=== PATIENT | male | born 1970 ===

== ENCOUNTER → 2017-07-01 | Outpatient (REF) | LOC: AMB 16:02 | PROVIDERS: ATTEND Nurse Practitioner | DX: Z02.9 Encounter for administrative examinations, unspecified (principal) ==

== ENCOUNTER → 2018-01-02 | Outpatient (RCR) | payer OTHER ==
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
--- NOTE | 2017-10-28 12:43 | PT PLAN OF CARE ---
Physician: Geoff Razo MD Patient is being seen: 3x/Week Therapist: Benita Biggs, PT, DPT, CLT Medical Diagnosis: Sacral Fracture, Left Trimalleolar Fracture, Left Femoral Shaft Fracture Treatment Diagnosis: Sacral Fracture, Left Trimalleolar Fracture, Left Femoral Shaft Fracture Date of Onset: 07/01/17 Date of Initial Evaluation: 10/04/17 Date patient was last seen: 10/28/17 Number of treatments: 11 Number of cancellations/No shows: 0 INTERVENTIONS: Manual Therapy/STM/MET Strengthening/condition Ice/Heat Range of Motion Spinal Stabilization Ultrasound Stretching Iontophoresis Neuromuscular Re-ed Closed Chain Program Electrical Stim Posture/Body mechanics Gait Trg/Balance Trg Biofeedback Home Exercise Program Mech./Manual Traction Therapeutic Activities Pelvic Floor GOALS: In 3 weeks pt will improve L ankle ROM to equal to that of the R LE for improved function with ambulation and ADL's. In Progress In 3 weeks pt will improve L hip strength to 4/5 or greater in all major muscle motor groups for improved function with ADL's. In Progress In 3 weeks pt will progress to single crutch ambulation for 5 laps to improve function with ADL's. MET In 6 weeks pt will increase L ankle strength to 4/5 in all major motor groups for improved function with ADL's. MET In 6 weeks pt will increase L knee strength to equal to that of the contralateral limb for improved function with ADL's. In 6 weeks pt will ambulate safely for 5 laps without use of AD for improved functional mobility with ADL's. In 6 weeks pt will be compliant with HEP for continued return to outdoor recreational activities. PATIENT'S GOAL: Return to outdoor activities, improve strength and function with ADL's. Status of Patient's Goals: 2/7 MET, /7 In Progress Patient Compliance: Good Prognosis: Good Reasons for continuing therapy: Ramos shows good progress with strengthening and stability with gradual progression to full WB status. At this time pt Ankle, Hip and Knee ROM is near equal to the unaffected side. Pt is ambulating with a single crutch only and is able to do full WB ambulation for short distances (< 15 feet). Further PT is indicated to continue with strengthening progression and return to PLOF. ROM: Ankle ROM (L,R): DF: 7, 10, PF: 33, 38, Inv: 36, 38, Evr: 7, 9. Knee ROM (L,R): Flexion: 138, 150, Ext: 0, 2. Lumbar ROM: Full without pain Hip ROM: WNL B Strength: Hip MMT (L, R): Flexion: 4+, 5, Add: 4+, 5, Abd: 4-, 5, Ext: 4-, 4+. Knee MMT (L,R): Flexion: 4, 5, Ext: 4, 5. Ankle MMT: all L 4/5, all R 5/5 Mobility: Pt able to perform sit<>stand transfers without use of B LE. If you have any questions or concerns, please feel free to contact me at . Thank you, Benita Biggs, PT, DPT, CLT MTDD
--- NOTE | 2017-11-25 11:36 | PT PLAN OF CARE ---
Physician: Geoff Razo MD Patient is being seen: 3x/Week Therapist: Benita Biggs, PT, DPT, CLT Medical Diagnosis: Sacral Fracture, Left Trimalleolar Fracture, Left Femoral Shaft Fracture Treatment Diagnosis: Sacral Fracture, Left Trimalleolar Fracture, Left Femoral Shaft Fracture Date of Onset: 07/01/17 Date of Initial Evaluation: 10/04/17 Date patient was last seen: 11/25/17 Number of treatments: 21 Number of cancellations/No shows: 0 INTERVENTIONS: Manual Therapy/STM/MET Strengthening/condition Ice/Heat Range of Motion Spinal Stabilization Ultrasound Stretching Iontophoresis Neuromuscular Re-ed Closed Chain Program Electrical Stim Posture/Body mechanics Gait Trg/Balance Trg Biofeedback Home Exercise Program Mech./Manual Traction Therapeutic Activities Pelvic Floor GOALS: In 3 weeks pt will improve L ankle ROM to equal to that of the R LE for improved function with ambulation and ADL's. In Progress In 3 weeks pt will improve L hip strength to 4/5 or greater in all major muscle motor groups for improved function with ADL's. MET In 3 weeks pt will progress to single crutch ambulation for 5 laps to improve function with ADL's. MET In 6 weeks pt will increase L ankle strength to 4/5 in all major motor groups for improved function with ADL's. MET In 6 weeks pt will increase L knee strength to equal to that of the contralateral limb for improved function with ADL's. In 6 weeks pt will ambulate safely for 5 laps without use of AD for improved functional mobility with ADL's. In 6 weeks pt will be compliant with HEP for continued return to outdoor recreational activities. PATIENT'S GOAL: Return to outdoor activities, improve strength and function with ADL's. Status of Patient's Goals: 3/7 MET, 4/7 In Progress Patient Compliance: Good Prognosis: Good Reasons for continuing therapy: Ramos shows good progress with strengthening and endurance. Pt shows improved weight shift to the L LE with ambulation, but remains to have decreased tolerance for full weight bearing with decreased hip and gluteal activation with SLS. Pt remains to have R trunk lateral shift in static stance and ambulation, but is able to correct with cuing. Ankle, Knee, and Hip mobility remain full without restrictions in all except ankle eversion. Further PT is indicated for this patient for improved progress towards gait and strength goals for return to prior level of function. ROM: Ankle ROM (L,R): DF: 9, 10, PF: 33, 38, Inv: 38, 38, Evr: 7, 9. Knee ROM (L,R): Flexion: 140, 150, Ext: 2, 2. Lumbar ROM: Full without pain Hip ROM: WNL B Strength: Hip MMT (L, R): Flexion: 4+, 5, Add: 4+, 5, Abd: 4+, 5, Ext: 4+, 4+. Knee MMT (L,R): Flexion: 4+, 5, Ext: 4+, 5. Ankle MMT: L side: DF/Inv/Erv: 5/5, PF: 4/5. R side: all 5/5 Mobility: Pt able to perform sit<>stand transfers without use of B LE. If you have any questions or concerns, please feel free to contact me at [phone]. Thank you, Benita Biggs, PT, DPT, CLT MTDD
--- NOTE | 2017-12-28 15:55 | PT PLAN OF CARE ---
Physician: Geoff Razo MD Patient is being seen: 2-3x/Week Therapist: Benita Biggs, PT, DPT, CLT Medical Diagnosis: Sacral Fracture, Left Trimalleolar Fracture, Left Femoral Shaft Fracture Treatment Diagnosis: Sacral Fracture, Left Trimalleolar Fracture, Left Femoral Shaft Fracture Date of Onset: 07/01/17 Date of Initial Evaluation: 10/04/17 Date patient was last seen: 12/28/17 Number of treatments: 31 Number of cancellations/No shows: 0 INTERVENTIONS: Manual Therapy/STM/MET Strengthening/condition Ice/Heat Range of Motion Spinal Stabilization Ultrasound Stretching Iontophoresis Neuromuscular Re-ed Closed Chain Program Electrical Stim Posture/Body mechanics Gait Trg/Balance Trg Biofeedback Home Exercise Program Mech./Manual Traction Therapeutic Activities Pelvic Floor GOALS: In 3 weeks pt will improve L ankle ROM to equal to that of the R LE for improved function with ambulation and ADL's. MET In 3 weeks pt will improve L hip strength to 4/5 or greater in all major muscle motor groups for improved function with ADL's. MET In 3 weeks pt will progress to single crutch ambulation for 5 laps to improve function with ADL's. MET In 6 weeks pt will increase L ankle strength to 4/5 in all major motor groups for improved function with ADL's. MET In 6 weeks pt will increase L knee strength to equal to that of the contralateral limb for improved function with ADL's. In 6 weeks pt will ambulate safely for 5 laps without use of AD for improved functional mobility with ADL's. In 6 weeks pt will be compliant with HEP for continued return to outdoor recreational activities. PATIENT'S GOAL: Return to outdoor activities, improve strength and function with ADL's. Status of Patient's Goals: 4/7 MET, 3/7 In Progress Patient Compliance: Good Prognosis: Good Reasons for continuing therapy: Ramos shows good progress with strengthening and endurance. Pt shows improved weight shift to the L LE with ambulation, but remains to have decreased tolerance for full weight bearing with decreased hip and gluteal activation with SLS. Activation shows improvements following NMES and tactile cuing. Additionally pt shows increased awareness of lateral weight shift to the R with stance and ambulation. Pt has returned to work resulting in decreased frequency of PT visits as well as repetition for compensatory methods for ambulation with occupational demands. Further PT is indicated for this patient for improved progress towards gait and strength goals for return to prior level of function as well as to decrease these compensatory behaviors such as decreased hip extension and lateral weight shifting. ROM: Ankle ROM (L,R): DF: 9, 10, PF: 35, 38, Inv: 38, 38, Evr: 7, 9. Knee ROM (L,R): Flexion: 145, 150, Ext: 2, 2. Lumbar ROM: Full without pain Hip ROM: WNL B Strength: Hip MMT (L, R): Flexion: 4+, 5, Add: 4+, 5, Abd: 4+, 5, Ext: 4+, 4+. Glute Med L 4/5. Knee MMT (L,R): Flexion: 4+, 5, Ext: 4+, 5. Ankle MMT: L side: DF/Inv/Erv: 5/5, PF: 4/5. R side: all 5/5 Mobility: Pt able to perform sit<>stand transfers without use of B LE. Outcome Measure: Lower Extremity Functional Scale (LEFS): 25/80 If you have any questions or concerns, please feel free to contact me at . Thank you, Benita Biggs, PT, DPT, CLT MTDAgustin
== END ==
LOC: PT 10-04 10:33
PROVIDERS: ATTEND Orthopaedic Surgery Orthopaedic Trauma
DX: Z47.89 Encounter for other orthopedic aftercare (principal); S32.13 Zone III fracture of sacrum; S82.852D Displaced trimalleolar fracture of left lower leg, subsequent encounter for closed fracture with routine healing; S72.352D Displaced comminuted fracture of shaft of left femur, subsequent encounter for closed fracture with routine healing; V43.52XD Car driver injured in collision with other type car in traffic accident, subsequent encounter
CPT/HCPCS: 97162; 97165

== ENCOUNTER 2018-02-14 09:45 | Outpatient (RCR) | payer OTHER ==
--- NOTE | 2018-01-06 08:14 | PT PLAN OF CARE ---
Physician: Geoff Razo MD Patient is being seen: 2-3x/Week Therapist: Benita Biggs, PT, DPT, CLT Medical Diagnosis: Sacral Fracture, Left Trimalleolar Fracture, Left Femoral Shaft Fracture Treatment Diagnosis: Sacral Fracture, Left Trimalleolar Fracture, Left Femoral Shaft Fracture Date of Onset: 07/01/17 Date of Initial Evaluation: 10/04/17 Date patient was last seen: 01/04/18 Number of treatments: 34 Number of cancellations/No shows: 0 INTERVENTIONS: Manual Therapy/STM/MET Strengthening/condition Ice/Heat Range of Motion Spinal Stabilization Ultrasound Stretching Iontophoresis Neuromuscular Re-ed Closed Chain Program Electrical Stim Posture/Body mechanics Gait Trg/Balance Trg Biofeedback Home Exercise Program Mech./Manual Traction Therapeutic Activities Pelvic Floor GOALS: In 3 weeks pt will improve L ankle ROM to equal to that of the R LE for improved function with ambulation and ADL's. MET In 3 weeks pt will improve L hip strength to 4/5 or greater in all major muscle motor groups for improved function with ADL's. MET In 3 weeks pt will progress to single crutch ambulation for 5 laps to improve function with ADL's. MET In 6 weeks pt will increase L ankle strength to 4/5 in all major motor groups for improved function with ADL's. MET In 6 weeks pt will increase L knee strength to equal to that of the contralateral limb for improved function with ADL's. In 6 weeks pt will ambulate safely for 5 laps without use of AD for improved functional mobility with ADL's. In 6 weeks pt will be compliant with HEP for continued return to outdoor recreational activities. PATIENT'S GOAL: Return to outdoor activities, improve strength and function with ADL's. Status of Patient's Goals: 4/7 MET, 3/7 In Progress Patient Compliance: Good Prognosis: Good Reasons for continuing therapy: Ramos shows good progress with strengthening and endurance. Pt shows improved weight shift to the L LE with ambulation, but remains to have decreased tolerance for full weight bearing with decreased hip and gluteal activation with SLS. Activation shows improvements following NMES and tactile cuing. Additionally pt shows increased awareness of lateral weight shift to the R with stance and ambulation. Pt has returned to work resulting in decreased frequency of PT visits as well as repetition for compensatory methods for ambulation with occupational demands. Further PT is indicated for this patient for improved progress towards gait and strength goals for return to prior level of function as well as to decrease these compensatory behaviors such as decreased hip extension and lateral weight shifting. ROM: Ankle ROM (L,R): DF: 9, 10, PF: 35, 38, Inv: 38, 38, Evr: 7, 9. Knee ROM (L,R): Flexion: 145, 150, Ext: 2, 2. Lumbar ROM: Full without pain Hip ROM: WNL B Strength: Hip MMT (L, R): Flexion: 4+, 5, Add: 4+, 5, Abd: 4+, 5, Ext: 4+, 4+. Glute Med L 4/5. Knee MMT (L,R): Flexion: 4+, 5, Ext: 4+, 5. Ankle MMT: L side: DF/Inv/Erv: 5/5, PF: 4/5. R side: all 5/5 Mobility: Pt able to perform sit<>stand transfers without use of B LE. Outcome Measure: Lower Extremity Functional Scale (LEFS): 25/80 If you have any questions or concerns, please feel free to contact me at . Thank you, Benita Biggs, PT, DPT, CLT MTDAgustin
--- NOTE | 2018-01-31 07:46 | PT PLAN OF CARE ---
Physician: Geoff Razo MD Patient is being seen: 2x/Week Therapist: Benita Biggs, PT, DPT, CLT Medical Diagnosis: Sacral Fracture, Left Trimalleolar Fracture, Left Femoral Shaft Fracture Treatment Diagnosis: Sacral Fracture, Left Trimalleolar Fracture, Left Femoral Shaft Fracture Date of Onset: 07/01/17 Date of Initial Evaluation: 10/04/17 Date patient was last seen: 01/26/18 Number of treatments: 41 Number of cancellations/No shows: 0 INTERVENTIONS: Manual Therapy/STM/MET Strengthening/condition Ice/Heat Range of Motion Spinal Stabilization Ultrasound Stretching Iontophoresis Neuromuscular Re-ed Closed Chain Program Electrical Stim Posture/Body mechanics Gait Trg/Balance Trg Biofeedback Home Exercise Program Mech./Manual Traction Therapeutic Activities Pelvic Floor GOALS: In 3 weeks pt will improve L ankle ROM to equal to that of the R LE for improved function with ambulation and ADL's. MET In 3 weeks pt will improve L hip strength to 4/5 or greater in all major muscle motor groups for improved function with ADL's. MET In 3 weeks pt will progress to single crutch ambulation for 5 laps to improve function with ADL's. MET In 6 weeks pt will increase L ankle strength to 4/5 in all major motor groups for improved function with ADL's. MET In 6 weeks pt will increase L knee strength to equal to that of the contralateral limb for improved function with ADL's. MET In 6 weeks pt will ambulate safely for 5 laps without use of AD for improved functional mobility with ADL's. In 6 weeks pt will be compliant with HEP for continued return to outdoor recreational activities. PATIENT'S GOAL: Return to outdoor activities, improve strength and function with ADL's. Status of Patient's Goals: 5/7 MET, 2/7 In Progress Patient Compliance: Good Prognosis: Good Reasons for continuing therapy: Ramos shows good progress weight bearing in ambulation with increased gluteal activity and stability. Pain however persists radiating from the lateral hip to the groin with full WB on L LE despite improved muscular activation. With non-WB strengthening pt shows no pain and is able to progress to near equal muscular strength. Gait mechanics have improved and pt is now able to tolerate short distances without use of the SPC. Further PT to continue progression away from AD as well as return pt to recreational activities including walking on uneven surfaces and hills for return to hiking. ROM: Ankle ROM (L,R): DF: 9, 10, PF: 35, 38, Inv: 38, 38, Evr: 7, 9. Knee ROM (L,R): Flexion: 145, 150, Ext: 2, 2. Lumbar ROM: Full without pain Hip ROM: WNL B Strength: Hip MMT (L, R): Flexion: 4+, 5, Add: 5, 5, Abd: 5, 5, Ext: 5, 5. Glute Med L 4/5. Knee MMT (L,R): Flexion: 5, 5, Ext: 5, 5. Ankle MMT: L side: DF/Inv/Erv: 5/5, PF: 4/5. R side: all 5/5 Mobility: Pt able to perform sit<>stand transfers without use of B LE. Outcome Measure: Lower Extremity Functional Scale (LEFS): 40/80 If you have any questions or concerns, please feel free to contact me at . Thank you, Benita Biggs, PT, DPT, CLT MTDD
--- NOTE | 2018-02-16 08:20 | PT PLAN OF CARE ---
Physician: Geoff Razo MD Patient is being seen: 2x/Week Therapist: Benita Biggs, PT, DPT, CLT Medical Diagnosis: Sacral Fracture, Left Trimalleolar Fracture, Left Femoral Shaft Fracture Treatment Diagnosis: Sacral Fracture, Left Trimalleolar Fracture, Left Femoral Shaft Fracture Date of Onset: 07/01/17 Date of Initial Evaluation: 10/04/17 Date patient was last seen: 02/14/18 Number of treatments: 45 Number of cancellations/No shows: 0 INTERVENTIONS: Manual Therapy/STM/MET Strengthening/condition Ice/Heat Range of Motion Spinal Stabilization Ultrasound Stretching Iontophoresis Neuromuscular Re-ed Closed Chain Program Electrical Stim Posture/Body mechanics Gait Trg/Balance Trg Biofeedback Home Exercise Program Mech./Manual Traction Therapeutic Activities Pelvic Floor GOALS: In 3 weeks pt will improve L ankle ROM to equal to that of the R LE for improved function with ambulation and ADL's. MET In 3 weeks pt will improve L hip strength to 4/5 or greater in all major muscle motor groups for improved function with ADL's. MET In 3 weeks pt will progress to single crutch ambulation for 5 laps to improve function with ADL's. MET In 6 weeks pt will increase L ankle strength to 4/5 in all major motor groups for improved function with ADL's. MET In 6 weeks pt will increase L knee strength to equal to that of the contralateral limb for improved function with ADL's. MET In 6 weeks pt will ambulate safely for 5 laps without use of AD for improved functional mobility with ADL's. In 6 weeks pt will be compliant with HEP for continued return to outdoor recreational activities. PATIENT'S GOAL: Return to outdoor activities, improve strength and function with ADL's. Status of Patient's Goals: 5/7 MET, 2/7 In Progress Patient Compliance: Good Prognosis: Good Reasons for discharge from therapy: Ramos is to discharge from physical therapy at this time secondary to upcoming revision of L hip surgical intervention. At the time of discharge pt showed improved strength surrounding the hip structure with good strength and stability in decreased or non-weight bearing without pain. With full WB on the L LE pt remained to have pain present resulting in antalgic gait and decreased weight transfer. Upon discharge pt is to continue with non-WB strengthening for improved surgical outcomes and neuromuscular facilitation. Following surgical intervention pt is to continue with further PT to progress to prior level of function with full healing for recreational and occupational activities. ROM: Ankle ROM (L,R): DF: 9, 10, PF: 35, 38, Inv: 38, 38, Evr: 7, 9. Knee ROM (L,R): Flexion: 145, 150, Ext: 2, 2. Lumbar ROM: Full without pain Hip ROM: WNL B Strength: Hip MMT (L, R): Flexion: 4+, 5, Add: 5, 5, Abd: 5, 5, Ext: 5, 5. Glute Med L 4/5. Knee MMT (L,R): Flexion: 5, 5, Ext: 5, 5. Ankle MMT: L side: DF/Inv/Erv: 5/5, PF: 4/5. R side: all 5/5 Mobility: Pt able to perform sit<>stand transfers without use of B LE. Outcome Measure: Lower Extremity Functional Scale (LEFS): 40/80 If you have any questions or concerns, please feel free to contact me at [phone]. Thank you, Benita Biggs, PT, DPT, CLT MTDD
== END 2018-02-14 18:00 | disposition home or self-care (01) ==
LOC: PT 09:45
PROVIDERS: ATTEND Orthopaedic Surgery Orthopaedic Trauma
DX: Z47.89 Encounter for other orthopedic aftercare (principal); S32.13 Zone III fracture of sacrum; S82.852D Displaced trimalleolar fracture of left lower leg, subsequent encounter for closed fracture with routine healing; S72.352D Displaced comminuted fracture of shaft of left femur, subsequent encounter for closed fracture with routine healing; V43.52XD Car driver injured in collision with other type car in traffic accident, subsequent encounter

== ENCOUNTER 2018-08-07 09:45 | Outpatient (RCR) | payer OTHER ==
--- NOTE | 2018-06-14 10:47 | PT PLAN OF CARE ---
Physician: Geoff Razo MD Patient is being seen: 2x/Week Therapist: Benita Biggs, PT, DPT, CLT Medical Diagnosis: Closed Displaced Left Femur Fracture, Left Trimalleolar Fracture Treatment Diagnosis: Closed Displaced Left Femur Fracture, Left Trimalleolar Fracture Date of Onset: 02/22/18 Date of Initial Evaluation: 03/09/18 Date patient was last seen: 06/14/18 Number of treatments: 23 Number of cancellations/No shows: 1 INTERVENTIONS: Manual Therapy/STM/MET Strengthening/condition Ice/Heat Range of Motion Spinal Stabilization Ultrasound Stretching Iontophoresis Neuromuscular Re-ed Closed Chain Program Electrical Stim Posture/Body mechanics Gait Trg/Balance Trg Biofeedback Home Exercise Program Mech./Manual Traction Therapeutic Activities Pelvic Floor GOALS: In 2 weeks pt will improve L ankle ROM to equal to that of the contralateral limb for improved function with ADL's. In 3 weeks pt will improve L hip and knee ROM to equal to that of the contralateral limb for improved function with ADL's. MET In 4 weeks pt will be able to ambulate 3 laps without use of AD for improved functional mobility with ADL's. MET In 6 weeks pt will improve LEFS score to 60/80 for improved function with ADL's. In 6 weeks pt will be able to walk on uneven surfaces and up and down hills for return to hiking and hunting. PATIENT'S GOAL: Return to prior level of function and get back to hiking, hunting and skiing. Status of Patient's Goals: 2/5 MET, 3/5 In Progress Patient Compliance: Good Prognosis: Good Reasons for continuing therapy: Ramos continues to show progress in improved ankle and hip motion as well as improved strength and stability throughout the entire L LE. Hip and ankle pain remain upon occasion. The L hip persistently is slightly painful with WB in both gait and exercise with nagging pain in the anterior femur and groin. The L ankle is painful with end range DF and PF stability and strengthening, but is non-painful in mid range levels. Pt's gait continues to improve with lateral hip stabilization strengthening with decreased Trendelenburg pattern. Quad strength of the L LE is currently at 50% of the R LE requiring further PT to improve. Further PT to also focus on return to recreational activities and continue to manage pain and improve ROM. ROM: LE ROM (L, R): Ankle: DF: 11, 12, PF: 38, 55, Ever: 15, 31, Inv: 37, 45. 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 Thank you, Benita Biggs, PT, DPT, CLT MTDD
--- NOTE | 2018-08-07 15:35 | PT PLAN OF CARE ---
Physician: Geoff Razo MD Patient is being seen: 2x/Week Therapist: Benita Biggs, PT, DPT, CLT Medical Diagnosis: Closed Displaced Left Femur Fracture, Left Trimalleolar Fracture Treatment Diagnosis: Closed Displaced Left Femur Fracture, Left Trimalleolar Fracture Date of Onset: 02/22/18 Date of Initial Evaluation: 03/09/18 Date patient was last seen: 08/07/18 Number of treatments: 35 Number of cancellations/No shows: 6 INTERVENTIONS: Manual Therapy/STM/MET Strengthening/condition Ice/Heat Range of Motion Spinal Stabilization Ultrasound Stretching Iontophoresis Neuromuscular Re-ed Closed Chain Program Electrical Stim Posture/Body mechanics Gait Trg/Balance Trg Biofeedback Home Exercise Program Mech./Manual Traction Therapeutic Activities Pelvic Floor GOALS: In 2 weeks pt will improve L ankle ROM to equal to that of the contralateral limb for improved function with ADL's. In 3 weeks pt will improve L hip and knee ROM to equal to that of the contralateral limb for improved function with ADL's. MET In 4 weeks pt will be able to ambulate 3 laps without use of AD for improved functional mobility with ADL's. MET In 6 weeks pt will improve LEFS score to 60/80 for improved function with ADL's. In 6 weeks pt will be able to walk on uneven surfaces and up and down hills for return to hiking and hunting. PATIENT'S GOAL: Return to prior level of function and get back to hiking, hunting and skiing. Status of Patient's Goals: 2/5 MET, 3/5 In Progress Patient Compliance: Good Prognosis: Good Reasons for continuing therapy: Progress has recently slowed secondary to poor attendance with occupational demands as well as poor compliance with HEP. Despite slowed progress towards goals, Mila has been returning to recreational level outside of PT with occasional snowshoeing for short distances without pain. Pt remains to have compensations related to habits formed following his initial failed plate on the femur including a Trendelenburg gait pattern when pt is not focusing on motion. Additionally stiffness remains in L foot with mobility improved each session but then returned stiffness between PT sessions. Pt to focus on HEP performance with occupational demands and attempt to make gains over the next month prior to discharge towards functional goals. ROM: LE ROM (L, R): Ankle: DF: 11, 12, PF: 40, 55, Ever: 15, 31, Inv: 40, 45. Knee: 3-0-150, 3-0-150, Hip: flex: 130, 130 Strength: LE MMT (L,R): Ankle: DF: 5/5, 5/5, PF: 5/5, 5/5, Knee: Flex: 5/5, 5/5, Ext: 5/5, 5/5, Hip: flex: 4+/5, 5/5, ext: 5/5, 5/5, abd/add: 5/5, 5/5 in seated, Glute Med: 4/5, 4+/5 Special Tests: Lower Extremity Functional Scale (LEFS): 48/80 Gait: Pt ambulates with SPC throughout the day on the job site, pt is able to perform 3 laps with mild Trendelenburg gait pattern If you have any questions, please feel free to contact me at [phone]. Thank you, Benita Biggs, PT, DPT, CLT GAROD
== END 2018-09-12 ==
LOC: PT 09:45
PROVIDERS: ATTEND Orthopaedic Surgery Orthopaedic Trauma
DX: Z48.89 Encounter for other specified surgical aftercare (principal); S72.352D Displaced comminuted fracture of shaft of left femur, subsequent encounter for closed fracture with routine healing; S82.852D Displaced trimalleolar fracture of left lower leg, subsequent encounter for closed fracture with routine healing; T84.84XD Pain due to internal orthopedic prosthetic devices, implants and grafts, subsequent encounter; V43.52XD Car driver injured in collision with other type car in traffic accident, subsequent encounter; R53.1 Weakness; R26.89 Other abnormalities of gait and mobility